=== PATIENT | female | born 1955 | race Caucasian/White ===

== ENCOUNTER 2020-10-12 19:31 | Emergency (ER) | payer MEDICARE, OTHER ==
[~2020-10-12 19:31] MED LIST: ACETAMINOPHEN500 M1 PO; AMOXICILLIN875 MG PO; ASPIRIN EC81 MG PO; CLARITIN10 MG PO; GLUCOTROL XL5 MG PO; HYDROCODON-ACE1 EAC4 PO; METFORMIN HCL500 MG PO; PERCOCET 5-3251 EACH PO; PRAVACHOL20 MG PO; PRILOSEC20 MG PO; SYNTHROID125 MCG PO; TAMIFLU 75MG CA75 MG PO; VITAMIN D22000 UNIT PO; VOLTAREN **OUT75 MG PO
[2020-10-12] MEDS ORDERED: CLEOCIN300 MG PO (21:56)
== END 2020-10-12 22:12 | disposition home or self-care (01) ==
LOC: FER 19:31
DX: L03.213 Periorbital cellulitis (principal); E11.9 Type 2 diabetes mellitus without complications
CPT/HCPCS: J7030

== ENCOUNTER 2021-02-20 13:56 | Emergency (ER) | payer OTHER ==
[~2021-02-20 13:56] MED LIST changes: +CLEOCIN300 MG PO
[2021-02-20 15:17] LABS: CORONAVIRUS 2019 SARS-COV-2 NEGATIVE (NEGATIVE); INFLUENZA A NAA NEGATIVE (NEGATIVE)
[2021-02-20] MEDS ORDERED: LEVAQUIN500 MG PO ×2 (16:09→16:22)
== END 2021-02-20 16:45 | disposition home or self-care (01) ==
LOC: FER 13:56
PROVIDERS: Emergency Medicine
DX: J18.9 Pneumonia, unspecified organism (principal); E11.9 Type 2 diabetes mellitus without complications; Z20.822 Contact with and (suspected) exposure to COVID-19
CPT/HCPCS: 71045; 94664; U0002